=== PATIENT | female | born 1990 | race Caucasian/White ===

== ENCOUNTER 2016-02-28 08:07 | Emergency (ER) | payer OTHER ==
[~2016-02-28] VITALS: Ht 154.9 cm; Wt 59.0 kg
[~2016-02-28 08:07] MED LIST: AMOXICILLIN500 M2 PO; AMOXICILLIN500 MG PO; DIFLUCAN150 MG PO; FLEXERIL10 MG PO; MOTRIN800 MG PO; NORCO 325 MG-101 TAB PO; PRENATAL1 TA7 PO; PROMETHAZINE25 M1 PO
== END 2016-02-28 10:00 | disposition home or self-care (01) ==
LOC: ED 08:07
DX: J02.0 Streptococcal pharyngitis (principal); F17.200 Nicotine dependence, unspecified, uncomplicated

== ENCOUNTER → 2016-03-06 | Outpatient (CLI) | payer OTHER ==
[2016-03-06 11:36] LABS: HEMATOCRIT 39.8 % (37.0-47.0); HEMOGLOBIN 13.1 g/dl (12.0-16.0); MEAN CELL VOLUME 85.4 fl (81.0-99.0); MEAN CORPUSCULAR HGB 28.1 pg (27.0-31.0); MEAN CORPUSCULAR HGB CONC 32.9 g/dl (33.0-37.0); MEAN PLATELET VOLUME 10.1 fl (9.6-12.3); RED BLOOD COUNT 4.66 10*6/uL (4.10-5.10)
[2016-03-06 12:16] LABS: ALBUMIN 3.9 gm/dl (3.1-4.5); ALKALINE PHOSPHATASE 76 U/L (45-117); BILIRUBIN, TOTAL 0.2 mg/dl (0.2-1.0); BUN 6 mg/dl (7-24); CARBON DIOXIDE 25 mmol/L (21-32); CHLORIDE 108 mmol/L (98-107); CHOLESTEROL 165 mg/dL (<200); EST GLOM FILT AFRICAN AMERICAN > 60 ml/min; GLUCOSE 77 mg/dL (65-99); HDL CHOLESTEROL 46 mg/dl (40-60); IRON 44 ug/dL (50-170); IRON SATURATION 12 %; LDL CHOLESTEROL 100 mg/dL (9-159); POTASSIUM 3.5 mmol/L (3.5-5.1); SGOT/AST 14 IU/L (3-35); SGPT/ALT 26 U/L (12-78); SODIUM 142 mmol/L (136-145); TOTAL PROTEIN 7.8 gm/dL (6.4-8.2); TRIGLYCERIDES 96 mg/dl (<150); UIBC 307 ug/dL (110-365); VLDL CHOLESTEROL 19 mg/dL (6-40)
[2016-03-06 14:02] LABS: VITAMIN D, 25-HYDROXY 19.5 ng/mL (30-100)
== END | disposition home or self-care (01) ==
LOC: LAB 11:05
PROVIDERS: Family Medicine
DX: D64.9 Anemia, unspecified (principal); E55.9 Vitamin D deficiency, unspecified; R53.83 Other fatigue; J02.0 Streptococcal pharyngitis

== ENCOUNTER → 2016-06-20 | Outpatient (CLI) | payer OTHER ==
[2016-06-20 13:48] LABS: HEMATOCRIT 41.6 % (37.0-47.0); HEMOGLOBIN 13.8 g/dl (12.0-16.0); MEAN CELL VOLUME 86.3 fl (81.0-99.0); MEAN CORPUSCULAR HGB 28.6 pg (27.0-31.0); MEAN CORPUSCULAR HGB CONC 33.2 g/dl (33.0-37.0); MEAN PLATELET VOLUME 10.4 fl (9.6-12.3); RED BLOOD COUNT 4.82 10*6/uL (4.10-5.10); RED CELL DISTRI WIDTH 12.7 % (0-14.5); WHITE BLOOD COUNT 11.4 10*3/uL (4.8-10.8)
== END | disposition home or self-care (01) ==
LOC: LAB 13:29
PROVIDERS: Family Medicine
DX: D72.819 Decreased white blood cell count, unspecified (principal); E55.9 Vitamin D deficiency, unspecified

== ENCOUNTER → 2016-09-19 | Outpatient (CLI) | payer OTHER ==
[2016-09-19 16:49] LABS: BASO % 0.3 % (0.0-1.0); EOS # 0.1 10*3/uL (0.0-0.4); EOS % 0.5 % (1.0-4.0); HEMATOCRIT 39.6 % (37.0-47.0); HEMOGLOBIN 13.2 g/dl (12.0-16.0); LYMPH # 3.5 10*3/uL (1.3-4.4); LYMPH % 33.4 % (27.0-41.0); MEAN CORPUSCULAR HGB CONC 33.3 g/dl (33.0-37.0); MEAN PLATELET VOLUME 10.2 fl (9.6-12.3); MONO # 0.6 10*3/uL (0.1-1.0); MONO % 5.4 % (3.0-9.0); NEUT # 6.2 10*3/uL (2.3-7.9); NEUT % 60.2 % (47.0-73.0); PLATELET COUNT AUTOMATED 288 10*3/uL (130-400); RED BLOOD COUNT 4.55 10*6/uL (4.10-5.10); RED CELL DISTRI WIDTH 12.7 % (0-14.5); WHITE BLOOD COUNT 10.3 10*3/uL (4.8-10.8)
== END | disposition home or self-care (01) ==
LOC: LAB 16:05
PROVIDERS: Family Medicine
DX: D72.829 Elevated white blood cell count, unspecified (principal)

== ENCOUNTER 2018-04-08 10:04 | Emergency (ER) | payer OTHER ==
[~2018-04-08] VITALS: Wt 54.4 kg
[2018-04-08 10:25] LABS: BILIRUBIN NEGATIVE (NEGATIVE); BLOOD NEGATIVE (NEGATIVE); CLARITY CLEAR (CLEAR); COLOR YELLOW (YELLOW); GLUCOSE NEGATIVE (NEGATIVE); KETONE NEGATIVE (NEGATIVE); LEUKO ESTERASE NEGATIVE (NEGATIVE); NITRITE NEGATIVE (NEGATIVE); PH 6.5 (5.0-9.0); SPECIFIC GRAVITY <= 1.005 (1.005-1.030); UROBILINOGEN 0.2 E.U./dl (0.2-1.0)
[2018-04-08 10:51] LABS: BACTERIA TRACE
[2018-04-09 22:04] LABS: GONOCOCCUS BY NAA Negative (Negative)
== END 2018-04-08 11:16 | disposition home or self-care (01) ==
LOC: ED 10:04
PROVIDERS: Nurse Practitioner Family
DX: Z11.3 Encounter for screening for infections with a predominantly sexual mode of transmission (principal)

== ENCOUNTER 2019-03-11 14:54 | Emergency (ER) | payer OTHER ==
[~2019-03-11] VITALS: Ht 157.4 cm; Wt 65.8 kg
[2019-03-11 16:17] LABS: URINE AMPHETAMINES < 1000 (1000ng/ml); URINE BARBITURATES < 200 (200ng/ml); URINE BENZODIAZEPINES < 200 (200ng/ml); URINE CANNABINOIDS (THC) > 50 (50ng/ml); URINE COCAINE < 300 (300ng/ml); URINE METHADONE < 300 (300ng/ml); URINE OPIATES < 300 (300ng/ml)
[2019-03-11 16:20] LABS: URINE PHENCYCLIDINE < 25 (25ng/ml)
[2019-03-11 16:21] LABS: BILIRUBIN NEGATIVE (NEGATIVE); BLOOD 3+ (NEGATIVE); CLARITY CLEAR (CLEAR); COLOR YELLOW (YELLOW); GLUCOSE NEGATIVE (NEGATIVE); KETONE NEGATIVE (NEGATIVE); LEUKO ESTERASE NEGATIVE (NEGATIVE); NITRITE NEGATIVE (NEGATIVE); SPECIFIC GRAVITY 1.015 (1.005-1.030); UROBILINOGEN 0.2 E.U./dl (0.2-1.0)
[2019-03-11 16:22] LABS: RBC 0-2 rbc/hpf (0-2)
[2019-03-11 16:27] LABS: BASO % 0.4 % (0.0-1.0); EOS # 0.1 10*3/uL (0.0-0.4); EOS % 0.6 % (1.0-4.0); HEMATOCRIT 41.7 % (37.0-47.0); HEMOGLOBIN 13.4 g/dl (12.0-16.0); LYMPH # 3.2 10*3/uL (1.3-4.4); LYMPH % 30.6 % (27.0-41.0); MEAN CELL VOLUME 87.2 fl (81.0-99.0); MEAN CORPUSCULAR HGB CONC 32.1 g/dl (33.0-37.0); MEAN PLATELET VOLUME 10.4 fl (9.6-12.3); MONO # 0.7 10*3/uL (0.1-1.0); MONO % 6.4 % (3.0-9.0); NEUT # 6.4 10*3/uL (2.3-7.9); NEUT % 61.6 % (47.0-73.0); PLATELET COUNT AUTOMATED 332 10*3/uL (130-400); RED BLOOD COUNT 4.78 10*6/uL (4.10-5.10); RED CELL DISTRI WIDTH 12.8 % (0-14.5); WHITE BLOOD COUNT 10.4 10*3/uL (4.8-10.8)
[2019-03-11 16:44] LABS: ALBUMIN 3.9 gm/dl (3.1-4.5); ALKALINE PHOSPHATASE 77 U/L (45-117); BUN 6 mg/dl (7-24); CHLORIDE 108 mmol/L (98-107); CREATININE 0.63 mg/dL (0.55-1.02); POTASSIUM 3.9 mmol/L (3.5-5.1); SGOT/AST 21 IU/L (3-35); SGPT/ALT 38 U/L (12-78); SODIUM 141 mmol/L (136-145); TOTAL PROTEIN 7.7 gm/dL (6.4-8.2)
[2019-03-11 17:02] LABS: ACETAMINOPHEN (TYLENOL) < 2.0 ug/ml (10-30); BETA-HCG, QUANT < 1.0 mIU/mL (1-3); ETHYL ALCOHOL < 3.0 mg/dl (<3)
[2019-03-11] MEDS ORDERED: ZOLOFT50 MG PO (20:32)
== END 2019-03-11 20:42 ==
LOC: ED 14:54
PROVIDERS: Emergency Medicine
DX: F32.9 Major depressive disorder, single episode, unspecified (principal); R45.851 Suicidal ideations

== ENCOUNTER 2020-08-19 22:32 | Emergency (ER) | payer OTHER ==
[~2020-08-19] VITALS: Ht 157.4 cm; Wt 59.0 kg
[~2020-08-19 22:32] MED LIST changes: +ZOLOFT50 MG PO
[2020-08-20 00:21] LABS: BILIRUBIN Negative (Negative); BLOOD Negative (Negative); CLARITY Clear (Clear); COLOR Yellow (Yellow); GLUCOSE Negative (Negative); KETONE Negative (Negative); LEUKO ESTERASE Trace (Negative); NITRITE Negative (Negative); PH 6.5 (4.5-8.0)
[2020-08-20] MEDS ORDERED: CYCLOBENZAPRINE10 MG PO (02:15)
[2020-08-20] MEDS ORDERED: MEDROL DOSEPAK4 MG PO (02:15)
== END 2020-08-20 02:20 | disposition home or self-care (01) ==
LOC: ED 22:32
PROVIDERS: Emergency Medicine
DX: M54.42 Lumbago with sciatica, left side (principal); F32.9 Major depressive disorder, single episode, unspecified; F17.200 Nicotine dependence, unspecified, uncomplicated; Z79.899 Other long term (current) drug therapy